=== PATIENT | male | born 2000 | race American Indian/Alaskan Native ===

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

== ENCOUNTER 2021-09-09 10:06 | Emergency (ER) | payer SELFPAY ==
[2021-09-09] MEDS ORDERED: SODIUM CHLORIDE 0.9% 1000 ML 1,000 ML IV ONE ×2 (10:44→11:52)
[2021-09-09] MEDS ORDERED: ONDANSETRON 4 MG/2 ML INJ IV ONE ×2 (10:44→11:52)
[2021-09-09 11:33] LABS: Eosinophils # (Auto) 0.5 K/mm3 (0.0-0.4); Hematocrit 39.5 % (35.5-45.6); Hemoglobin 13.2 gm/dl (11.8-15.2); Lymphocytes # (Auto) 1.1 K/mm3 (1.2-5.4); Lymphocytes % (Auto) 28.4 % (13.4-35.0); Mean Corpuscular HGB Conc 33 % (32-34); Mean Corpuscular Volume 87 fl (84-94); Monocytes # (Auto) 0.4 K/mm3 (0.0-0.8); Monocytes % (Auto) 9.8 % (0.0-7.3); Platelet Count 227 K/mm3 (140-440); Red Blood Count 4.52 M/mm3 (3.65-5.03); Red Cell Distribution Width 15.1 % (13.2-15.2)
[2021-09-09 11:54] LABS: Alanine Aminotransferase 9 units/L (7-56); Albumin 3.9 g/dL (3.9-5); BUN/Creatinine Ratio 6; Blood Urea Nitrogen 5 mg/dL (9-20); Calcium 8.5 mg/dL (8.4-10.2); Hemolysis Index 9
[2021-09-09] MEDS ORDERED: POTASSIUM CHLORIDE ER 20 MEQ TAB PO ONE (12:22)
[2021-09-09 13:33] VITALS: BP 127/86
[2021-09-09 13:40] LABS: Mucus,Urine FEW /HPF; RBC,Urine < 1.0 /HPF (0.0-6.0)
[2021-09-09 13:59] LABS: Bilirubin,Urine Negative (Negative); Blood,Urine Negative (Negative); Color,Urine Yellow (Yellow); Protein,Urine <15 mg/dL mg/dL (Negative); Urobilinogen,Urine < 2.0 mg/dL (<2.0)
== END 2021-09-09 14:08 | disposition home or self-care (01) ==
LOC: ED 10:06
DX: K52.9 Noninfective gastroenteritis and colitis, unspecified (principal); E87.6 Hypokalemia
CPT/HCPCS: 36415; 80053; 81001; 83690; 85025; 96361; 96374; 96376; 99283; J2405; J7030; Q0162

== ENCOUNTER 2021-09-16 14:19 | Emergency (ER) | payer SELFPAY ==
[2021-09-16 16:34] VITALS: BP 132/78
[2021-09-16] MEDS ORDERED: KETOROLAC 10 MG TAB PO ONE (19:31)
[2021-09-16] MEDS ORDERED: CYCLOBENZAPRINE 10 MG TAB PO ONE (19:32)
[2021-09-16 20:29] LABS: Bilirubin,Urine NEG (Negative); Blood,Urine NEG (Negative); Color,Urine Yellow (Yellow); Mucus,Urine FEW /HPF; Protein,Urine <15 mg/dL mg/dL (Negative); RBC,Urine < 1.0 /HPF (0.0-6.0); Urobilinogen,Urine < 2.0 mg/dL (<2.0); WBC,Urine < 1.0 /HPF (0.0-6.0)
--- NOTE | 2021-09-16 20:44 | Emergency Department Report ---
ED Back Pain/Injury HPI - General Chief Complaint: Abdominal Pain Stated Complaint: RT SIDE PAIN Time Seen by Provider: 09/16/21 19:04 Source: patient Limitations: No Limitations - History of Present Illness Initial Comments: 21 YOM with no pmh presents to ed for evaluation of right flank/back pain. He denies injury but states that pain started yesterday and is worse with movement. He denies fever, n/v/d, abdominal pain, and changes in appetite. -: Gradual, days(s) (1) Similar Symptoms Previously: No Place: home Radiation: none Severity: moderate Severity scale (0 -10): 6 Quality: aching Consistency: intermittent Improves With: none Worsens With: movement Associated Symptoms: denies other symptoms - Related Data Previous Rx's Medication Instructions Recorded Last Taken Type Ondansetron [Zofran Odt] 4 mg PO Q8HR PRN #10 tab.rapdis 09/09/21 Unknown Rx Cyclobenzaprine [Flexeril] 10 mg PO TID PRN #21 tab 09/16/21 Unknown Rx Naproxen [Naprosyn] 500 mg PO BID #14 tab 09/16/21 Unknown Rx Allergies Allergy/AdvReac Type Severity Reaction Status Date / Time No Known Allergies Allergy Unverified 04/13/14 09:51 ED Review of Systems ROS: Stated complaint: RT SIDE PAIN Other details as noted in HPI Comment: All other systems reviewed and negative Constitutional: denies: chills, diaphoresis, fever, malaise Eyes: denies: eye pain, eye discharge ENT: denies: ear pain, throat pain Respiratory: denies: cough, orthopnea, shortness of breath, SOB with exertion, SOB at rest Cardiovascular: denies: chest pain, palpitations, dyspnea on exertion, orthopnea, edema, syncope Endocrine: no symptoms reported Gastrointestinal: denies: abdominal pain, nausea, vomiting, hematemesis, melena, hematochezia Genitourinary: denies: urgency, dysuria, frequency, hematuria, discharge, testicular pain Musculoskeletal: denies: back pain, joint swelling, arthralgia, myalgia Skin: denies: rash, lesions Neurological: denies: headache, weakness, numbness, paresthesias, confusion Psychiatric: denies: anxiety, depression Hematological/Lymphatic: denies: easy bleeding, easy bruising ED Past Medical Hx - Past Medical History Hx Diabetes: No Hx Renal Disease: No Hx Sickle Cell Disease: No Hx Seizures: No Hx Asthma: No Hx HIV: No Additional medical history: eczema, ADHD - Social History Smoking Status: Never Smoker Substance Use Type: None - Medications Home Medications: Home Medications Medication Instructions Recorded Confirmed Last Taken Type Ondansetron [Zofran Odt] 4 mg PO Q8HR PRN #10 tab.rapdis 09/09/21 Unknown Rx Cyclobenzaprine [Flexeril] 10 mg PO TID PRN #21 tab 09/16/21 Unknown Rx Naproxen [Naprosyn] 500 mg PO BID #14 tab 09/16/21 Unknown Rx ED Physical Exam - General Limitations: No Limitations General appearance: alert, in no apparent distress - Head Head exam: Present: atraumatic, normocephalic - Eye Eye exam: Present: normal appearance. Absent: conjunctival injection - Neck Neck exam: Present: normal inspection. Absent: tenderness - Respiratory Respiratory exam: Present: normal lung sounds bilaterally. Absent: respiratory distress, wheezes, rales, rhonchi, chest wall tenderness, accessory muscle use - Cardiovascular Cardiovascular Exam: Present: bradycardia, normal heart sounds - GI/Abdominal GI/Abdominal exam: Present: soft, normal bowel sounds. Absent: distended, tenderness, guarding, rebound, rigid - Extremities Exam Extremities exam: Present: normal inspection, full ROM - Back Exam Back exam: Present: normal inspection, full ROM, tenderness (right lower). Absent: CVA tenderness (R), CVA tenderness (L), paraspinal tenderness, vertebral tenderness - Neurological Exam Neurological exam: Present: alert, oriented X3 - Psychiatric Psychiatric exam: Present: normal mood - Skin Skin exam: Present: warm, dry, intact, normal color ED Course Vital Signs 09/16/21 16:32 Temperature 98.2 F Pulse Rate 52 L Respiratory 16 Rate Blood Pressure 132/78 [Left] O2 Sat by Pulse 100 Oximetry ED Medical Decision Making - Medical Decision Making 21 YOM with no pmh presents to ed for evaluation of right flank/back pain. He denies injury but states that pain started yesterday and is worse with movement. He denies fever, n/v/d, abdominal pain, and changes in appetite. UA wnl, pain resolved after medications, and assessment consistent with musculokeletal pain. Patient will be treated with one week coarse of antiinflammatories along with muscle relaxants. He was advised to take medications as prescribed and follow up with pcp if worsening symptoms. He verbalized understanding of and agreement with plan of care. Critical care attestation.: If time is entered above; I have spent that time in minutes in the direct care of this critically ill patient, excluding procedure time. ED Disposition Clinical Impression: Flank pain Disposition: HOME / SELF CARE / HOMELESS Is pt being admited?: No Does the pt Need Aspirin: No Condition: Stable Instructions: Flank Pain, Adult, [id number], Pain Without a Known Cause Additional Instructions: Follow-up with primary care provider for further evaluation. Take medications as prescribed. Prescriptions: Cyclobenzaprine [Flexeril] 10 mg PO TID PRN #21 tab PRN Reason: Muscle Spasm Naproxen [Naprosyn] 500 mg PO BID #14 tab Referrals: JOSELITO AVALOS MD [Primary Care Provider] - 3-5 Days Forms: Work/School Release Form(ED) Time of Disposition: 20:44
== END 2021-09-16 21:15 | disposition home or self-care (01) ==
LOC: ED 14:19
DX: R10.9 Unspecified abdominal pain (principal)
CPT/HCPCS: 81001; 99283